=== PATIENT | female | born 1985 | race Two or more races ===

== ENCOUNTER 2024-05-17 09:33 | Outpatient (RCR) | payer MEDICAID, SELFPAY ==
[2024-05-16 13:00] LABS: HCG Qualitative,Urine Negative
--- NOTE | 2024-05-17 10:00 | XR_ITS ---
Examination: CECIL, hepatobiliary radioisotope scan Gallbladder ejection fraction study. Date and time of exam: May 17, 2024 0949 hrs. Indications: Abdominal pain epigastric pain heartburn beginning 2 years ago Technique: 5.8 mCi of 99M Hepatolite administered. Serial imaging then obtained from immediate through 60 minutes. 1.4 mcg selective catheter Kinevac administered for gallbladder ejection fraction study. Findings: Radioisotope activity within the liver is reasonably homogenous. Gallbladder, common bile duct small bowel activity noted Impression: Gallbladder activity Abnormal gallbladder ejection fraction 17% normal greater than 35%
== END 2024-05-22 23:59 | disposition home or self-care (01) ==
LOC: SNUC 09:33
PROVIDERS: PCP Internal Medicine Gastroenterology; Referring Provider Internal Medicine Gastroenterology; Visit Provider Internal Medicine Gastroenterology
DX: R93.2 Abnormal findings on diagnostic imaging of liver and biliary tract (principal); Z32.00 Encounter for pregnancy test, result unknown
CPT/HCPCS: 78227; 81025; A9537; J2805

== ENCOUNTER 2024-08-30 10:25 | Outpatient (AMB) | payer MEDICAID, SELFPAY ==
[2024-08-30 11:05] VITALS: BP 108/67; PULSE 91; RESP 18; TEMP 36.5; O2SAT 98; BMI 23.6
--- NOTE | 2024-08-30 11:05 | GSCOFFNT_ITS ---
Vital Signs - [facility] 08/30/24 11:05 Height 1.68 m Height Method Stated Weight 66.31 kg Weight Measurement Method Standing Scale BMI 23.6 BP 108/67 Blood Pressure Source Automatic Cuff Blood Pressure Location Right Upper Arm Position Sitting Respiration 18 Pulse 91 Pulse Source Monitor Temp 97.7 F Temp Source Temporal Artery Scan Pulse Oximetry (%) 98 Oxygen Delivery Method Room Air Med/Allergies Allergies & Medications Allergies ibuprofen Allergy (Mild, Verified 08/30/24 11:06) Rash Medication Reconciliation acetaminophen 500 mg capsule 1,000 mg (2 x 500 mg) PO Q8HR PRN pain #60 caps 05/23/19 [Rx Confirmed 08/30/24] ibuprofen 800 mg tablet 800 mg PO TID PRN pain #30 tabs 05/23/19 [Rx Confirmed 08/30/24] tramadol 50 mg tablet 50 mg PO TID PRN pain #20 tabs 01/01/22 [Rx Confirmed 08/30/24] MA Intake Visit Data Collection New Patient or Established: Established Patient (seen at [facility] within 3 years) Reason for Visit:: gallstones referral Pain Present Currently: Yes Pain scale:: 0 Pain Scale Used: Mejia-Galvin/Numerical Flash Drier Operator Required: Yes PCP or OBGYN visit in last 3 months: Yes Hx Now: No Do You Feel Safe at Home: Yes Authorities Contacted: N/A Smoking Status Smoking Status: Never smoker Immunization / Flu Flu Vaccine in the Last 12 Months: No Flu Vaccine Exclusion Criteria: No Exclusion Criteria Past Medical History Past Medical History CARDIAC: Negative Cardiac Disorders or Congestive Heart Failure RESPIRATORY: Negative Chronic Obstructive Pulmonary Disease (COPD) or Asthma GENITOURINARY: Negative Renal Disease ENDOCRINE: Negative Diabetes Mellitus Type 1 or Diabetes Mellitus Type 2 HEMATOLOGIC: Negative Sickle Cell Disease Social History SMOKING STATUS: Smoking status: Never smoker Travel Risk Travel Hx Recent Travel: No HPI HPI Narrative 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 Pt was seen by Dr Castellon at [facility] and und marti JAC[facility] in Apr 2021 showing EF of 40%, followed by a repeat HIDA 05/2024 showing EF of 17%. US was negative for gallstones or gallbladder wall thickening. Pt also underwent EGD 05/2023 showing H pylori which was treated and confirmed negative Dec 2023. Pt states when she has abdominal pain it is located at the umbilicus, and denies ever having had epigastric or RUQ pain. She states the pain is sometimes worse with eating but actually tends to be worse at night, and is relieved with dicyclomine. She denies any nausea/vomiting or diarrhea PMH: H. pylori PSHx: None Meds: Bentyl PRN (she was advised to take it TID but she states she takes it only when she has pain) Allergie: Ibuprofen ROS Review of Systems Systems Reviewed: All systems reviewed, normal except as documented Objective/Exam General General Appearance: alert, cooperative and well groomed Resp Respiratory exam: Absent respiratory distress Abdominal Abdominal exam: Present soft and tenderness (moderate umbilicus tenderness, no epigastric or RUQ tenderness); Absent distention Results Reports of HIDA and US reviewed Assessment & Plan Diagnosis / Problem List (1) Umbilical pain: Status: Acute Assessment & Plan: 39F referred for biliary dyskinesia however on history has no related signs or symptoms, though she does have umbilical pain and tenderness. On exam there was a possible hernia but as pt was tender will evaluate with US Orders: Orders US abdomen limited 1 Week K42.9 - Umbilical hernia without obstruction or gangrene, R10.33 - Periumbilical pain Office Procedures GNS Level of Care Nursing/Assessment Patient Status: Established Patient Nursing Assessment/Reassesment: Medication Reconciliation, Update PMH in EMR and Vital Signs Coordination of Care: Complex Care and Chronic Disease 1-5, Education Complex Pt/Fam, Consent,records obtained, informed consent, Results/Orders obtained and Staff clarify orders Special Needs: Language special needs Established Patient Charge Established Patient Point Assignment: 95 Established Patient Point Charge: EP Level 3 (80-115) Patient Portal Questionaires Social History Tobacco History Smoking Status: Never smoker Domestic Abuse History Do You Feel Safe at Home: Yes Review of Systems Report any current symptoms Only answer those that you have currently: Past Medical History Past Medical History Have you ever been diagnosed with any of the following: Cardiology Problems Congestive Heart Failure: No Respiratory Problems Chronic Obstructive Pulmonary Disease (COPD): No Asthma: No Genital/Urinary Problems Renal Disease: No Endocrine Problems Diabetes Mellitus Type 1: No Diabetes Mellitus Type 2: No Blood Problems Sickle Cell Disease: No
== END 2024-08-30 11:35 | disposition home or self-care (01) ==
LOC: HODSRG 10:25
PROVIDERS: PCP Physician Assistant; Referring Provider Physician Assistant; Supervising Provider Surgery; Visit Provider Surgery
DX: K42.9 Umbilical hernia without obstruction or gangrene (principal)
CPT/HCPCS: 99213; G0463

== ENCOUNTER → 2024-09-11 | Outpatient (CLI) | payer MEDICAID, SELFPAY ==
--- NOTE | 2024-09-11 10:15 | XR_ITS ---
Examination: Abdomen sonogram, Limited Date and time of exam: September 11, 2024, 1022 hours Comparison May 17, 2023 INDICATIONS: Periumbilical pain beginning 3 months ago Technique: Real-time sharma scale transabdominal sonographic images of the abdomen obtained. Findings: No sonographic findings of hernia IMPRESSION: No sonographic findings of hernia
== END | disposition home or self-care (01) ==
LOC: CDIM 10:04
PROVIDERS: PCP Registered Nurse Community Health; Referring Provider Surgery; Visit Provider Surgery
DX: R10.33 Periumbilical pain (principal); K42.9 Umbilical hernia without obstruction or gangrene
CPT/HCPCS: 76705

== ENCOUNTER 2024-11-05 12:59 | Outpatient (AMB) | payer MEDICAID, SELFPAY ==
[2024-11-05 13:07] VITALS: BP 114/71; PULSE 77; RESP 18; TEMP 36.6; O2SAT 98; BMI 23.2
--- NOTE | 2024-11-05 13:07 | PD.GSCLVISIT ---
Vital Signs - [facility] 11/05/24 13:07 Height 1.68 m Height Method Measured Weight 65.487 kg Weight Measurement Method Standing Scale BMI 23.2 BP 114/71 Blood Pressure Source Automatic Cuff Blood Pressure Location Left Upper Arm Position Sitting Respiration 18 Pulse 77 Pulse Source Monitor Temp 97.9 F Temp Source Temporal Artery Scan Pulse Oximetry (%) 98 Oxygen Delivery Method Room Air Med/Allergies Allergies & Medications Allergies ibuprofen Allergy (Mild, Verified 11/05/24 13:08) Rash Medication Reconciliation acetaminophen 500 mg capsule 1,000 mg (2 x 500 mg) PO Q8HR PRN pain #60 caps 05/23/19 [Rx Confirmed 11/05/24] ibuprofen 800 mg tablet 800 mg PO TID PRN pain #30 tabs 05/23/19 [Rx Confirmed 11/05/24] tramadol 50 mg tablet 50 mg PO TID PRN pain #20 tabs 01/01/22 [Rx Confirmed 11/05/24] MA Intake Visit Data Collection New Patient or Established: Established Patient (seen at [facility] within 3 years) Seen by Clinical Staff ONLY (RN/RADHA): No Reason for Visit:: F/U ULTRASOUND RESULTS Pain Present Currently: No Pain Scale Used: Mejia-Galvin/Numerical Digital Media Coordinator Required: Yes PCP or OBGYN visit in last 3 months: Yes Hx Now: No Do You Feel Safe at Home: Yes Authorities Contacted: N/A Smoking Status Smoking Status: Never smoker Immunization / Flu Flu Vaccine in the Last 12 Months: Yes Flu Vaccine Exclusion Criteria: Already Received Past Medical History Past Medical History CARDIAC: Negative Cardiac Disorders or Congestive Heart Failure RESPIRATORY: Negative Chronic Obstructive Pulmonary Disease (COPD) or Asthma GENITOURINARY: Negative Renal Disease ENDOCRINE: Negative Diabetes Mellitus Type 1 or Diabetes Mellitus Type 2 HEMATOLOGIC: Negative Sickle Cell Disease Social History SMOKING STATUS: Smoking status: Never smoker HPI HPI Narrative Spoke to pt with in-person historic interpreter 39F here for follow up of biliary dyskinesia/periumbilical pain. After last visit pt underwent abdominal US which did not show any sign of periumbilical hernia. She states the pain still comes and goes, it is not severe and is most prominent to the immediate right of the umbilicus. She feels the pain is a bit worse after eating fatty foods but is still relieved with dicyclomine and she has no changes in bowel habits ROS Review of Systems Systems Reviewed: All systems reviewed, normal except as documented Objective/Exam General General Appearance: alert, cooperative and well groomed Resp Respiratory exam: Absent respiratory distress Abdominal Abdominal exam: Present soft and tenderness (mild tenderness to palpation at the right aspect of umbilicus); Absent distention Results Abdomen US reviewed Assessment & Plan Diagnosis / Problem List (1) Biliary dyskinesia: Status: Acute Assessment & Plan: 39F here for follow up of biliary dyskinesia/periumbilical pain. As she does not have an umbilical hernia I explained that the cause of her pain is unclear; it may be related to her biliary dyskinesia although the symptomatology is not completely consistent. I explained that even in cases of clear biliary dyskinesia, up to 30% of patients continue to have pain after surgery. I did offer to continue following up and explained that surgery is not out of the question as she is otherwise healthy and we have no other explanation for her symptoms; ultimately she decided to discuss with her and will follow up in 6 weeks Office Procedures GNS Level of Care Nursing/Assessment Patient Status: Established Patient Nursing Assessment/Reassesment: Medication Reconciliation, Update PMH in EMR and Vital Signs Coordination of Care: Complex Care and Chronic Disease 1-5, Consent,records obtained, informed consent, Education Simp Pt/Fam, Results/Orders obtained and Staff clarify orders Special Needs: Language special needs Established Patient Charge Established Patient Point Assignment: 90 Established Patient Point Charge: EP Level 3 (80-115) Patient Portal Questionaires Social History Tobacco History Smoking Status: Never smoker Domestic Abuse History Do You Feel Safe at Home: Yes Review of Systems Report any current symptoms Only answer those that you have currently: Past Medical History Past Medical History Have you ever been diagnosed with any of the following: Cardiology Problems Congestive Heart Failure: No Respiratory Problems Chronic Obstructive Pulmonary Disease (COPD): No Asthma: No Genital/Urinary Problems Renal Disease: No Endocrine Problems Diabetes Mellitus Type 1: No Diabetes Mellitus Type 2: No Blood Problems Sickle Cell Disease: No
== END 2024-11-05 13:27 | disposition home or self-care (01) ==
LOC: HODSRG 12:59
PROVIDERS: PCP Physician Assistant; Referring Provider Physician Assistant; Supervising Provider Surgery; Visit Provider Surgery
DX: K82.8 Other specified diseases of gallbladder (principal)
CPT/HCPCS: 99213; G0463